=== PATIENT | male | born 2000 | race Caucasian/White ===

== ENCOUNTER 2020-08-18 00:31 | Emergency (ER) | payer BC ==
[~2020-08-18] VITALS: Ht 182.9 cm; Wt 71.0 kg
[2020-08-18] MEDS ORDERED: SODIUM CHLORIDE 0.9% 1,000 ML IV ONE (01:30)
[2020-08-18 01:39] LABS: BASOPHILS % 0.6 % (0.0-2.0); EOSINOPHILS % 1.9 % (0.0-5.0); HEMATOCRIT. 41.6 % (42.0-52.0); HEMOGLOBIN. 13.8 g/dL (14.0-18.0); LYMPHOCYTES % 25.7 % (20.0-50.0); MEAN CORPUSCULAR VOLUME 90.7 fL (80.0-94.0); MEAN PLATELET VOLUME 10.2 fl (7.4-10.4); NEUTROPHILS % 65.8 % (40.0-76.0); PLATELET 204 x1000/uL (130-400); RED BLOOD CELL COUNT 4.58 mill/uL (4.7-6.1); RED CELL DISTRIBUTION WIDTH 12.7 % (11.6-14.6)
[2020-08-18 01:44] LABS: CHLORIDE 106 mEq/L (98-107)
[2020-08-18 02:51] LABS: INR 1.1; PROTHROMBIN TIME 12.1 sec (9.6-11.0)
[2020-08-18] MEDS ORDERED: IOHEXOL-300 100 ML BOTTLE ONE (03:41)
[2020-08-18 05:35] VITALS: BP 100/43
== END 2020-08-18 07:21 | disposition home or self-care (01) ==
LOC: ER 00:31
DX: R10.32 Left lower quadrant pain (principal); F12.10 Cannabis abuse, uncomplicated; F17.210 Nicotine dependence, cigarettes, uncomplicated
CPT/HCPCS: 36415; 74177; 80053; 83690; 85025; 85610; 93005; 96360; 99285; J7030; Q9967